=== PATIENT | female | born 2005 | race Caucasian/White ===

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

== ENCOUNTER 2025-05-21 12:25 | Emergency (ER) | payer SELFPAY ==
[2025-05-21 12:27] VITALS: BP 128/89; PULSE 72; TEMP 37; O2SAT 100; BMI 31.1
--- OUTSIDE RECORDS SUMMARY | 2025-05-21 12:39 | XMS_ITS | Clinical Summary ---
Author Organization [facility] Healthcare Address [address] [place] [address] Care Team Providers Care Motorcycle Builder Name Role Phone Chacho Peñaloza MD Primary Care Provider [phone] Allergies Active Allergy Reactions Criticality Noted Date Comments Penicillin G Other 12/15/2023 Medications norgestimate-ethin yl estradiol (Hattie) 0.25-35 MG-MCG tabletIndications: Encounter for contraceptive management, unspecified TAKE 1 TABLET BY MOUTH EVERY DAY FOR 28 DAYS 28 tablet 12 4 Active tretinoin (Retin-A) 0.025 % cream Apply topically at bedtime Active ISOtretinoin (Accutane) 30 MG capsuleIndications :Acne vulgaris Take 2 capsules daily, by mouth, 30 days 60 capsule 4 Active Active Problems No known active problems Family History Medical History Relation Name Comments Asthma Brother Relation Name Status Comments Brother Father Alive Mother Alive Social History Tobacco Use Types Packs/Day Years Used Date Smoking Tobacco: Never Smokeless Tobacco: Never Tobacco Cessation:Counseling Given: Not Answered Alcohol Use Standard Drinks/Week Comments Never 0 (1 standard drink = 0.6 oz pur e alcohol) caffeine: occasional Comments No Sex and Gender Information Value Date Recorded Sex Assigned at Not on file Legal Sex Female 6:50 PM EDT Gender Identity Not on file Sexual Orientation Not on file Last Filed Vital Signs Vital Sign Reading Time Taken Comments Blood Pressure 122/76 12/15/2023 3:50 PM EST Pulse 112 08/14/2024 3:17 PM EDT Temperature 36.4 C (97.5 F) 08/14/2024 3:17 PM EDT Respiratory Rate - - Oxygen Saturation 99% 08/14/2024 3:17 PM EDT Inhaled Oxygen Concentration - - Weight 86.2 kg (190 lb) 08/14/2024 3:17 PM EDT Height 165.1 cm (5' 5 ) 07/06/2022 12:00 PM EDT Body Mass Index - - Plan of Treatment Not on file Insurance [place] [employer] [place] Care Teams Motorcycle Builder Relationship Specialty Start Date End Date Chacho Peñaloza MD PCP - General Family Medicine 11/11/23
--- OUTSIDE RECORDS SUMMARY | 2025-05-21 12:39 | XMS_ITS | Encounter Summary ---
Author Organization [facility] Address [address] [place] [address] Care Team Providers Care Service Rig Operator Name Role Phone Chacho Peñaloza MD Primary Care Provider [phone] Reason for Visit * Reason Comments Med Refill Encounter Details Date Type Department Care Team (Late st Contact Info) Description 09/09/2023 Refill [facility] [address] [facility] [address] [place] [address] Gonzalez Ambrose MD [address] [facility] [address] [place] [address] Encounter for contraceptive management, unspecified Social History Tobacco Use Types Packs/Day Years Used Date Smoking Tobacco: Never Assessed Comments Unknown Sex and Gender Information Value Date Recorded Sex Assigned at Not on file Legal Sex Female 6:50 PM EDT Gender Identity Not on file Sexual Orientation Not on file documented as of this encounter Plan of Treatment Not on file documented as of this encounter Visit Diagnoses Diagnosis Encounter for contraceptive management, unspecified documented in this encounter Care Teams Service Rig Operator Relationship Specialty Start Date End Date Chacho Peñaloza MD PCP - General Family Medicine 11/11/23 documented as of this encounter
--- OUTSIDE RECORDS SUMMARY | 2025-05-21 12:39 | XMS_ITS | Clinical Summary ---
Author Organization [facility] Address [address], [address] [place] [address] Care Team Providers Care Code Clerk Name Role Phone Mario Morton MD Primary Care Provider [phone] Allergies No known active allergies Medications No known medications Social History Tobacco Use Types Packs/Day Years Used Date Smoking Tobacco: Never Assessed Comments Unknown Sex and Gender Information Value Date Recorded Sex Assigned at Not on file Legal Sex Female 5:24 PM EDT Gender Identity Not on file Sexual Orientation Not on file Last Filed Vital Signs Vital Sign Reading Time Taken Comments Blood Pressure 127/67 03/29/2014 10:17 AM EDT Pulse 94 03/29/2014 1:00 PM EDT Temperature 36.4 C (97.6 F) 03/29/2014 1:00 PM EDT Respiratory Rate 18 03/29/2014 1:00 PM EDT Oxygen Saturation 98% 03/29/2014 1:00 PM EDT Inhaled Oxygen Concentration - - Weight 36.3 kg (80 lb) 03/29/2014 10:09 AM EDT Height 121.9 cm (4') 03/29/2014 10:09 AM EDT Body Mass Index 24.41 03/29/2014 10:09 AM EDT Body Mass Index Percentile 98.03% 03/29/2014 10: 09 AM EDT Growth Chart: [facility] (Girls, 2- 20 Years) Plan of Treatment Not on file Care Teams Code Clerk Relationship Specialty Start Date End Date Mario Morton MD PCP - General Pediatrics 03/29/14
--- OUTSIDE RECORDS SUMMARY | 2025-05-21 12:39 | XMS_ITS | Encounter Summary ---
Author Organization [facility] Address [address] [place] [address] Care Team Providers Care Reaming Machine Tender Name Role Phone Chacho Peñaloza MD Primary Care Provider [phone] Encounter Details Date Type Department Care Team (Late st Contact Info) Description 12/23/2023 Abstract [facility] [address] [facility] [address] [place] [address] Gonzalez Ambrose MD [address] [facility] [address] [place] [address] Social History Tobacco Use Types Packs/Day Years Used Date Smoking Tobacco: Never Smokeless Tobacco: Never Alcohol Use Standard Drinks/Week Comments Never 0 [...] documented as of this encounter Visit Diagnoses Not on filedocumented in this encounter Care Teams Reaming Machine Tender Relationship Specialty Start Date End Date Chacho Peñaloza MD PCP - General Family Medicine 11/11/23 documented as of this encounter
--- NOTE | 2025-05-21 12:47 | ED_ITS ---
HPI - Dental/Oral General Chief complaint: Dental/Oral Stated complaint: DENTAL PAIN Time Seen by Provider: 05/21/25 12:37 Source: patient Mode of arrival: walk-in History of Present Illness HPI Narrative: Patient presents to the ED with a complaint of dental pain. She is having dental pain around tooth #3 and 4. She states she has had issues like this in the past she has not seen a dentist recently. She has been up all night with the discomfort. She denies any sore throat or runny nose no swelling underneath her tongue no difficulty with speaking or swallowing. No ear pain. No fever that she knows of she did feel sweats this morning. She did not take her temperature however. She does not have any other contributory symptoms. She does have a filling in the tooth that is bothering her. She has no other complaints at this time MD Complaint: Reports tooth pain Teeth map: 2 1. Onset (ago): day(s) Duration: constant Severity: moderate Relieving factors: NSAIDs Exacerbating factors: chewing and cold Context: history of dental caries Associated symptoms: gum swelling Treatment prior to arrival: oral analgesic Related Data Previous Rx's ?Medication ?Instructions ?Recorded amoxicillin 875 mg tablet 875 mg PO BID #20 tabs 05/21 chlorhexidine gluconate 0.12 % 15 ml mucous membrane B ID 7 days 05/21/25 mouthwash (Peridex) #300 mL naproxen 500 mg tablet 500 mg PO Q12H PRN pain #20 tabs 05/21/25 Allergies Allergy/AdvReac Type Severity Reaction Status Date / Time No Known Drug Allergies Allergy Verified 05/21/25 12:31 PFSH PFSH Social History Little interest or pleasure in doing things: not at all Feeling down, depressed, or hopeless: not at all Exam Constitutional Vital Signs, click to edit/add: Last Vital Signs Temp 98.6 F 05/21/25 12:27 Pulse 72 05/21/25 12:27 Resp 16 05/21/25 12:27 BP 128/89 05/21/25 12:27 Pulse Ox 100 05/21/25 12:27 O2 Del Method Room Air 05/21/25 12:27 Documenting provider has reviewed patient's vital signs: yes Common normals: no apparent distress, average body habitus and oriented x3 HENMT Common normals: normocephalic and head/scalp atraumatic Head and scalp: normal to inspection, normocephalic and atraumatic Face and sinus: normal facial exam, sinuses nontender and face symmetric Nose: external nose normal, nares normal and no nasal discharge General ear: hearing not grossly impaired External ear: external ears normal and mastoids normal; mastoids not abnormal Tympanic membrane: TMs normal bilaterally Mouth: lip normal and tongue normal; moist mucous membranes not abnormal, no muffled voice and no trismus Teeth and gingiva: abnormal tooth and associated gingiva and gingiva abnormal Throat: posterior oropharynx normal Neck & C-Spine Common normals: full ROM, no lymphadenopathy, supple and no meningeal signs Respiratory Common normals: normal respiratory effort, no retractions and clear to auscultation bilaterally Cardio Common normals: regular rate, regular rhythm and no murmurs Rhythm: regular rhythm Neuro Sensorium/orientation: awake and alert Speech: speech normal Gait (neuro): normal gait Psych Common normals: mental status grossly normal Attitude: calm and engaged Activity/motor behavior: appropriate eye contact Speech: normal speech Thought process: normal thought process Course Vital Signs Vital signs: Vital Signs Temperature 98.6 F 05/21/25 12:27 Pulse Rate 72 05/21/25 12:27 Respiratory Rate 16 05/21/25 12:27 Blood Pressure 128/89 05/21/25 12:27 Pulse Oximetry 100 05/21/25 12:27 Oxygen Delivery Method Room Air 05/21/25 12:27 Temperature 98.6 F 05/21/25 12:27 Pulse Rate 72 05/21/25 12:27 Respiratory Rate 16 05/21/25 12:27 Blood Pressure 128/89 05/21/25 12:27 Pulse Oximetry 100 05/21/25 12:27 Oxygen Delivery Method Room Air 05/21/25 12:27 MDM - Dental/Oral MDM Narrative Medical decision making narrative: Patient presents to the ED with a complaint of dental pain. She is having dental pain around tooth #3 and 4. She states she has had issues like this in the past she has not seen a dentist recently. She has been up all night with the discomfort. She denies any sore throat or runny nose no swelling underneath her tongue no difficulty with speaking or swallowing. No ear pain. No fever that she knows of she did feel sweats this morning. She did not take her temperature however. She does not have any other contributory symptoms. She does have a filling in the tooth that is bothering her. She has no other complaints at this time Patient is alert and oriented no acute distress she is resting comfortably in her bed. HEENT exam shows normal TMs pharynx is not erythematous no exudate no swelling underneath the tongue no lymphadenopathy good range of motion of her neck. Tooth #3 and 4 are tender to percussion. She does have a filling in tooth #3. It does not appear to be dislodged. She is speaking in normally. She has redness along the gumline as well. I do not feel any obvious abscess on palpation of the gumline. No abnormality of the palate. Heart and lung exam are unremarkable. I will place the patient on some antibiotics and some pain control. She does have a dentist she has got a follow-up where she also request a work note. All questions were answered and she will be discharged home at this time Differential Diagnosis Differential diagnosis: Likely gingival abscess, dental caries, toothache, dental abscess and fracture of tooth Medical Records Attestation: I reviewed the patient's medical records. Discharge Plan Discharge Chief Complaint: Dental/Oral Clinical Impression: Toothache, Dental caries Patient Disposition: Home, Self-Care Time of Disposition Decision: 12:51 Condition: Good Mode of Transportation: Private Vehicle Prescriptions / Home Meds: New amoxicillin 875 mg tablet 875 mg PO BID Qty: 20 0RF naproxen 500 mg tablet 500 mg PO Q12H PRN (Reason: pain) Qty: 20 0RF chlorhexidine gluconate [Peridex] 0.12 % mouthwash 15 ml mucous membrane BID 7 Days Qty: 300 0RF Rx Instructions: swish x 1 minute and spit Print Language: [place] Citizen Instructions: Toothache (ED) Additional Instructions: Follow up with a Dentist, List provided Referrals: Chacho Peñaloza MD [Primary Care Provider, Family Practice] - 1 week Discharge Date/Time: 05/21/25 13:04
--- OUTSIDE RECORDS SUMMARY | 2025-05-21 12:48 | XMS_ITS | CCD ---
Author Organization [facility] Care Team Providers Care Retort Fireman Name Role Phone GIOVANNI, DR DOAN Attending Unavailable GIOVANNI, DR DOAN Consulting Unavailable GIOVANNI, DR DOAN Primary Care Unavailable GIOVANNI, DR DOAN Admitting Unavailable Unavailable Primary Care Provider Unavailjazmyn Peñaloza MD, Franki Aparicio Primary Care Provider [phone] PROVIDER, UNKNOWN Admitting Unavailable ROBERT THORNTONA Referring Unavailable MATT THORNTON Attending Unavailable PROVIDER, UNKNOWN Attending Unavailable PROVIDER, UNKNOWN Admitting Unavailable JUSTYN GLASS Attending Unavailable FELTER, MAGUI Alexander Attending Unavailable ALEKSANDR AMBROSE Attending Unavailable FELTER, MAGUI Alexander Attending Unavailable FELTER, MAGUI Alexander Attending Unavailable FELTER, MAGUI Alexander Attending Unavailable FELTER, MAGUI Alexander Attending Unavailable FELTER, MAGUI Alexander Attending Unavailable FELTER, MAGUI Alexander Attending Unavailable FELTER, MAGUI Alexander Attending Unavailable ODETTE MATTHEWS Attending Unavailable Allergies Allergy Classification Reported Allergen(s) Allergy Type Date of Onset Reaction(s) Facility (11 sources) Penicillin G Drug Allergy 12-15-2023 Other [facility] Medications Current Medications Medication Drug Class(es) Dates Sig (Normalized) Sig (Original) clindamycin 10 mg/ml topical lotion (4 sources) Lincosamide Antibacterial Start: 03-02-2024 End: 06-22-2024 clindamycin (Cleocin T) 1 % lotion Indications: Acne vulgaris Apply thin later to affected areas on the body during flares, 30 day supply 60 mL 1 03/02/2024 06/22/2024 Discontinued (Ineffective) Start: 09-20-2023 clindamycin (C leocin T) 1 % lotion Indications: Acne vulgaris Apply thin layer to face in morning, 30 day supply 60 mL 11 09/20/2023 Active ethinyl estradiol 0.035 mg / norgestimate 0.25 mg oral tablet (12 sources) Progestin, Estrogen Start: 12-15-2023 norgestimate-ethinyl estradiol (Hattie) 0.25-35 MG-MCG tablet Indications: Encounter for contraceptive management, unspecified TAKE 1 TABLET BY MOUTH EVERY DAY FOR 28 DAYS 28 tablet 12 12/15/2023 Active Start: 09-24-2023 norgestimate-e thinyl estradiol (Hattie) 0.25-35 MG-MCG tablet Indications: Encounter for contraceptive management, unspecified TAKE 1 TABLET BY MOUTH EVERY DAY FOR 28 DAYS 28 tablet 2 09/24/2023 Active ISOtretinoin 30 mg oral capsule (17 sources) Retinoid Start: 06-22-2024 End: 08-02-2024 take 2 capsules by mouth once daily ISOtretinoin (Accutane) 30 MG capsule Indications: Acne vulgaris Take 2 capsules daily, by mouth, 30 days 60 capsule 08/02/2024 Active Start: 05-23-2024 End: 06-22-2024 take 1 capsule by mouth once daily ISOtretinoin (Accutane) 40 MG capsule Indications: Acne vulgaris , Encounter for long-term (current) use of medications Take 1 capsule daily, by mouth, 30 days 30 capsule 05/23/2024 06/22/2024 Discontinued (Dose adjustment) minocycline 100 mg oral capsule (1 source) Tetracycline-class Drug Start: 09-20-2023 take 1 capsule by mouth twice daily minocycline 100 MG capsule Indications: Acne vulgaris Take 1 capsule, by mouth, bid, 30 days 60 capsule 2 09/20/2023 Active tretinoin 0.25 mg/ml topical cream (13 sources) Retinoid Start: 09-20-2023 tretinoin (Retin-A) 0.025 % cream Indications: Acne vulgaris Apply to face, once daily at evening/night time, 30 day supply 20 g 11 09/20/2023 Active tretinoin (Retin -A) 0.025 % cream Apply topically at bedtime Active Completed/Discontinued Medications Medication Drug Class(es) Dates Sig (Normalized) Sig (Original) 12 hr dextromethorphan hydrobromide 30 mg / guaiFENesin 600 mg extended release oral tablet (2 sources) Uncompetitive O-puryzr-F-aspartat e Receptor Antagonist, Sigma-1 Agonist Start: 08-14-2024 End: 08-19-2024 take 1 tablet by mouth once as needed Dextromethorphan -guaiFENesin (Mucinex DM) 30-600 MG tablet sustained-releas e 12 hour Indications: Upper respiratory tract infection, unspecified type Take 1 tablet by mouth every 12 (twelve) hours if needed (as needed) for up to 5 days 28 tablet 08/14/2024 08/19/2024 Problems Active Problems Problem Classification Problem Date Documented Da te Episodic/Chronic Acute bronchitis (1 source) Acute bronchitis, unspecified; Translations: [ACUTE BRONCHITIS UNSPECIFIED] Onset: 02-27-2021 Episodic Disorders of teeth and jaw (3 sources) Tooth eruption disorder; Translations: [Disturbances in tooth eruption] Onset: 11-25-2023 09-30-2023 Episodic Other aftercare (6 sources) Taking high risk medication; Translations: [Other retirement (current) drug therapy] 07-24-2024 Episodic Other skin disorders (6 sources) Acne vulgaris; Translations: [Acne vulgaris] 07-24-2024 Episodic Other upper respiratory infections (2 sources) Upper respiratory infection; Translations: [Acute upper respiratory infection, unspecified] 08-14-2024 Episodic Unclassified (3 sources) CONTACT W/AND (SUSP) EXPOS COVID-19; Translations: [CONTACT W/AND (SUSP) EXPOS COVID-19] Onset: 02-27-2021 Past or Other Problems Problem Classification Problem Date Documented Da te Episodic/Chronic Unclassified (1 source) CONTACT W/AND (SUSP) EXPOS COVID-19; Translations: [CONTACT W/AND (SUSP) EXPOS COVID-19] Onset: 02-19-2021 Results Test Name Value Interpretation Reference Range Facility Laboratory - Microbiology an d Antimicrobial susceptibilityon 08-14-2024 SARS-CoV-2 (COVID-19) RNA JAYDON+probe Ql (Unsp spec) Negative [facility] No Panel Informationon 08-14 FLU A Negative [facility] FLU B Negative [facility] No Panel InformationOrdered By: Justyn Godoy on 08-14-2024 Interpretation and review of laboratory results Normal [facility] S. pyogenes DNA JAYDON+probe No m (Unsp spec)Ordered By: Justyn Godoy on 08-14-2024 RESULT Negative [facility] HCG ( test) Ql (U)o n 08-02-2024 Interpretation and review of laboratory results Normal [facility] Preg Test, Ur Negative [facility] care [facility] HCG ( test) Ql (U)o n 07-24-2024 Interpretation and review of laboratory results Normal [facility] Preg Test, Ur Negative [facility] care [facility] HCG ( test) Ql (U)o n 06-22-2024 Interpretation and review of laboratory results Normal [facility] Preg Test, Ur Negative [facility] Progress Noteson 10-08-2023 Certified Hand Therapist Authentication Interface Message Text [facility] PATIENT VISIT CHIEF COMPLAINT: Arthur Teeth HISTORY OF PRESENT ILLNESS: 17 yo F with sig pmhx of dental anxiety presents to clinic for evaluation of thirds. Patient denies fever, chills, odynophagia, dysphagia, and shortness of breath. Pt endorses waxing and waning pain originating from the teeth listed on the referral that limits ability to chew, function normally, and perform oral hygiene. PAST MEDICAL HISTORY: 17 yrs old White female Medical History No past medical history on file. There is no problem list on file for this patient. MEDICATIONS: No current outpatient medications on file. No current facility-administer ed medications for this visit. ALLERGIES: Patient has no allergy information on record. SURGICAL HX: Surgical History No past surgical history on file. SOCIAL HX: No Significant findings CLINICAL EXAMINATION Extraoral examination: No significant findings No s/s of infection, redness or tenderness to palpation No facial asymmetry or swelling No appreciable LAD Range of motion WNL CN V and VII intact Intraoral examination: No s/s of infection or tenderness to palpation Moist, pink mucosa Oropharynx clear No pathological soft lesions appreciated Oral cancer screen negative Occlusion stable Oral hygiene Fair #1 visible #16 not visible #17, #32 partially visible RADIOGRAPHIC INTERPRETATION: [employer] Film taken on 09/30/2023, and Retained in our clinic files #1 fully erupted #16 partially bony impacted #17, 32 fully bony impacted DIAGNOSIS: Impacted wisdom teeth TREATMENT: 17 yo F with sig pmhx of dental anxiety presents to clinic for evaluation of thirds. Patient is a candidate for IV sedation in clinic. General Anesthesia Exam: PHYSICAL EXAM: Heart: RRR, S1, S2, No Murmur Lung: clear to auscultation Airway: Class I Uvula, faucial pillars, soft palate visible Reviewed procedure and complications associated with extractions ,including treatment options and no treatment. Opportunity given to ask all desired questions. Pertinent and more common complications of extractions discussed with the patient; pain, swelling, bruising, bleeding, infection (that may require further treatment such as hospitalizations), possible permanent numbness of the tongue, gums, teeth, lip, and chin, injury to adjacent structures (tooth, lip, cheek, jaw bone), damage to adjacent teeth, development of permanent TMJ symptoms/dysfunctio n, jaw fracture at time of surgery or afterwards, decision to leave root tips behind, displacement of tooth (or portion of) into adjacent spaces (such as sinus, floor of mouth, throat) and the development of sinus symptoms. Complications are not limited to the above and may include others that are less common. PLAN: EXT #1, 16, 17, 32 under IV sedation in clinic Bishop Ny DDS Dropped by Alexa Hay from [facility] Normal [facility] Patient Instructionson 09-30 Certified Hand Therapist Authentication Interface Message Text Oral Surgery IV sedation / General anesthesia instructions You have chosen conscious sedation or general anesthesia for your treatment. You have the right to be informed about this so that you can decide whether to have it or not after knowing the risks and benefits. These common procedures are considered quite safe. Nevertheless, all procedures have some risks. They include the following and others: 1. Discomfort, swelling or bruising where the drugs are placed into a vein. 2. Vein irritation, called phlebitis, where the drugs are placed into a vein. Sometimes this may grow to a level of discomfort or disability where it may be difficult to move your arm or hand. Sometimes medication or other treatment may be needed. 3. Nerves travel next to the blood vessels where the drugs are placed into a vein. If the needle hits a nerve or if drugs or fluid leaks out of the vessel around a nerve, I may have numbness or pain in the nerve where it runs along the arm. Usually the numbness or pain goes away, but in some cases, it may be permanent 4. Allergic reactions (previously unknown) to any of the medications used. 5. Nausea and vomiting, although not common, are possible unfortunate side effects. Bed rest, and sometimes medications, may be required for relief. 6. Conscious sedation and general anesthesia are serious medical procedures and, whether given in a hospital or office, carry the risk of brain damage, stroke, heart attack or . YOUR OBLIGATIONS: 7. Because anesthetic or sedative medications (including oral premedication) causes drowsiness that lasts for some time, I MUST be accompanied by a responsible adult to drive me to and from surgery, and stay with me for several hours until you are recovered sufficiently to care for myself. Sometimes the effects of the drugs do not wear off for 24 hours. 8. During recovery time (normally 24 hours), I should not drive, operate complicated machinery or devices or make important decisions such as signing documents, etc. 9. I must have a completely empty stomach. It is vital that I have NOTHING TO EAT OR DRINK for eight (8) hours prior to your treatment. TO DO OTHERWISE MAY BE LIFE-THREATENING. 10. Unless instructed otherwise, it is important that I take any regular medications (high blood pressure, antibiotics, etc.) or any medicines given to me by my surgeon using only a small sip of water. 11. You must bring a responsible Adult with you who is willing to stay in the clinic waiting room while you are being treated, and who will take you home. Do not bring small children on day of procedure. Your escort must drive you to and from the hospital. Do not ride the bus. 12. If you are under 18 years of age, your mother, father, or legal guardian must come to the clinic with you. Female patients must have a negative test result from our lab in the system. 13. Do not wear: nail russian, lipstick, heavy makeup, contact lenses, jewelry, wigs. Do wear: loose clothes with short sleeves, long pants, shoes (no high heals). 14. Please call our office to cancel your appointment if you feel sick. Normal [facility] [employer] Progress Noteson 09-30-2023 Certified Hand Therapist Authentication Interface Message Text Normal The [email or web address] Certified Hand Therapist Authentication Interface Message Text ---- Attestation signed by Matt Thornton DMD, MD at 10/28/2023 11:00 AM Teaching Physician Note: I saw and evaluated the patient. I personally obtained the reddy and critical portions of the history and physical exam. I reviewed the resident's documentation and discussed the patient with the resident. I agree with the resident's medical decision making as documented in the resident's note. Matt Thornton DMD, MD ---- [facility] PATIENT VISIT CHIEF COMPLAINT: Arthur Teeth HISTORY OF PRESENT ILLNESS: 17 yo F with sig pmhx of dental anxiety presents to clinic for evaluation of thirds. Patient denies fever, chills, odynophagia, dysphagia, and shortness of breath. Pt endorses waxing and waning pain originating from the teeth listed on the referral that limits ability to chew, function normally, and perform oral hygiene. PAST MEDICAL HISTORY: 17 yrs old White female No past medical history on file. There is no problem list on file for this patient. MEDICATIONS: No current outpatient medications on file. No current facility-administer ed medications for this visit. ALLERGIES: Patient has no allergy information on record. SURGICAL HX: No past surgical history on file. SOCIAL HX: No Significant findings CLINICAL EXAMINATION Extraoral examination: No significant findings No s/s of infection, redness or tenderness to palpation No facial asymmetry or swelling No appreciable LAD Range of motion WNL CN V and VII intact Intraoral examination: No s/s of infection or tenderness to palpation Moist, pink mucosa Oropharynx clear No pathological soft lesions appreciated Oral cancer screen negative Occlusion stable Oral hygiene Fair #1 visible #16 not visible #17, #32 partially visible RADIOGRAPHIC INTERPRETATION: [employer] Film taken on 09/30/2023, and Retained in our clinic files #1 fully erupted #16 partially bony impacted #17, 32 fully bony impacted DIAGNOSIS: Impacted wisdom teeth TREATMENT: 17 yo F with sig pmhx of dental anxiety presents to clinic for evaluation of thirds. Patient is a candidate for IV sedation in clinic. General Anesthesia Exam: PHYSICAL EXAM: Heart: RRR, S1, S2, No Murmur Lung: clear to auscultation Airway: Class I Uvula, faucial pillars, soft palate visible Reviewed procedure and complications associated with extractions ,including treatment options and no treatment. Opportunity given to ask all desired questions. Pertinent and more common complications of extractions discussed with the patient; pain, swelling, bruising, bleeding, infection (that may require further treatment such as hospitalizations), possible permanent numbness of the tongue, gums, teeth, lip, and chin, injury to adjacent structures (tooth, lip, cheek, jaw bone), damage to adjacent teeth, development of permanent TMJ symptoms/dysfunctio n, jaw fracture at time of surgery or afterwards, decision to leave root tips behind, displacement of tooth (or portion of) into adjacent spaces (such as sinus, floor of mouth, throat) and the development of sinus symptoms. Complications are not limited to the above and may include others that are less common. PLAN: EXT #1, 16, 17, 32 under IV sedation in clinic Bishop Ny DDS [facility] Cov[facility] PCR (CVDTBH)on Sample Type Test performed using RT-PCR from a nasopharyngeal collected specimen. Normal The [facility] Comment on above: Performed By: #### C VDTB #### [facility] [address] [place] [address] Yancy Badillo SARS-CoV-2 (COVID-19) RNA JAYDON+probe Ql (Unsp spec) Not detected Normal NOT DETECTED [facility] Comment on above: Result Comment: This test is not yet approved or cleared by the [place] FDA. When there are no FDA-approved or cleared tests available, and other criteria are met, FDA can make tests available under an emergency access mechanism called an Emergency Use Authorization (EUA). The EUA for this test is supported by the Receptionist Nurse of Health and Human Service's (HHS's) declaration that circumstances exist to justify the emergency use of in vitro diagnostics for the detection and/or diagnosis of the virus that causes COVID-19. This EUA will remain in effect (meaning this test can be used) for the duration of the COVID-19 declaration justifying emergency of IVDs, unless it is terminated or revoked by FDA (after which the test may no longer be used). When diagnostic testing is negative, the possibility of a false negative should be considered in the context of a patient's recent exposures and the presence of clinical signs and symptoms consistent with SARS-CoV-2. Performed By: #### [facility] #### [facility] [address], [place] [address] Yancy Badillo Vital Signs Date Time Vital Sign Value Performing Clinician Faci lity 08-14-2024 15:17-0400 Body temperature 97.5 [degF] Colto Work Phone: [facility] 08-14-2024 15:17-0400 Body weight 86.18 kg Colto Work Phone: [facility] 08-14-2024 15:17-0400 Heart rate 112 /min Colto Work Phone: [facility] 08-14-2024 15:17-0400 SaO2% (BldA) [Mass fraction] 99 % Colto Work Phone: [facility] 09-30-2023 08:18-0500 Body height 165.1 cm Matt Thornton DMD, MD Work Phone: [facility] 09-30-2023 08:18-0500 Body mass index (BMI) [Percentile] Per age and sex 92.33 % Matt Thornton DMD, MD Work Phone: [facility] 09-30-2023 08:18-0500 Body mass index (BMI) [Ratio] 28.29 kg/m2 Matt Thornton DMD, MD Work Phone: [facility] 09-30-2023 08:18-0500 Body weight 77.11 kg Matt Thornton DMD, MD Work Phone: [facility] Encounters Encounter Date Encounter Type Care Provider Facility Start: 08-14-2024 End: 08-14-2024 Office outpatient visit 25 minutes Summer Fon Work Phone: [facility] Comment on above: Upper respiratory tr act infection, unspecified type (Primary Dx) Start: 08-14-2024 End: 08-14-2024 ambulatory SUMMER M WORKMAN Not Available Start: 08-02-2024 End: 08-02-2024 Bamboo flowsheet Magui A Felter [employer]ANE HEL[employer]IRITUAL MINISTER Work Phone: [facility] Start: 08-02-2024 End: 08-02-2024 Bamboo flowsheet Magui A Felter [employer] HEL[employer]IRITUAL [employer]ISTER Work Phone: [facility] Start: 08-02-2024 End: 08-02-2024 ambulatory MAGUI A FELTER Not Available Start: 08-02-2024 End: 08-02-2024 Office outpatient visit 5 minutes Magui A Felter [employer] HEL[employer]SPIRITUAL [employer]ISTER Work Phone: [facility] Comment on above: Acne vulgaris (Prima ry Dx); High risk medication use Start: 07-24-2024 End: 07-24-2024 Bamboo flowsheet Magui A Felter [employer] HEL[employer]SPIRITUAL MINISTER Work Phone: [facility] Start: 07-24-2024 End: 07-24-2024 Bamboo flowsheet Magui A Felter [employer] HEL[employer]SPIRITUAL [employer]ISTER [facility] Start: 07-24-2024 End: 07-24-2024 ambulatory MAGUI A FELTER Not Available Start: 07-24-2024 End: 07-24-2024 Office outpatient visit 25 minutes Magui A Felter [employer]IRIT[employer]ISTER Work Phone: [facility] Comment on above: Acne vulgaris (Prima ry Dx); High risk medication use Start: 06-22-2024 End: 06-22-2024 Bamboo flowsheet Magui A Felter [employer] HEL[employer]SPIRITUAL MINISTER Work Phone: [facility] Start: 06-22-2024 End: 06-22-2024 Bamboo flowsheet Magui A Felter [employer] HEL[employer]SPIRITUAL [employer]ISTER Work Phone: [facility] Start: 06-22-2024 End: 06-22-2024 Office outpatient visit 15 minutes Magui A Felter [employer] HEL[employer]SPIRITUAL MINISTER Work Phone: [facility] Comment on above: Acne vulgaris (Prima ry Dx); High risk medication use Start: 06-22-2024 End: 06-22-2024 ambulatory MAGUI A FELTER Not Available Start: 05-23-2024 End: 05-23-2024 ambulatory MAGUI A FELTER Not Available Start: 03-02-2024 End: 03-02-2024 ambulatory MAGUI A FELTER Not Available Start: 01-31-2024 End: 01-31-2024 ambulatory MAGUI A FELTER Not Available Start: 12-15-2023 End: 12-15-2023 ambulatory ALEKSANDR Guerra MARIA TERESA Not Available Start: 11-25-2023 ambulatory [facility] Start: 11-22-2023 Bamboo flowsheet Magui A Fel ter CRANE HELPER[employer]SPIRITUAL MINISTER Work Phone: [facility] Start: 11-22-2023 Bamboo flowsheet Magui A Fel ter CRANE HELPER[employer]SPIRITUAL MINISTER Work Phone: [facility] Start: 11-22-2023 End: 11-22-2023 ambulatory MAGUI A FELTER Not Available Start: 11-11-2023 End: 11-11-2023 ambulatory JUSTYN Dayron QUAN Not Available Start: 09-30-2023 ambulatory UNKNOWN PROVIDER [facility] Start: 09-30-2023 End: 09-30-2023 Patient encounter procedure Matt Thornton DMD, MD Work Phone: [facility] Comment on above: Abnormal tooth erupt ion (Primary Dx) Start: 09-20-2023 End: 09-20-2023 ambulatory MAGUI A FELTER Not Available Start: 02-19-2021 End: 02-20-[address] FRANKI PEÑALOZA Facility:[facility] Procedures Date Procedure Procedure Detail Performing Clinician Start: 08-14-2024 Iadna streptococcus group a amplified probe tq Summer Markus GONZALEZ Work Phone: Start: 08-14-2024 STATUS COVID-19/FLU Sum kaity M Roseanne GONZALEZ Work Phone: Start: 08-02-2024 Urine test visual color cmprsn meths Magui A Felter [employer]ISTER Work Phone: Start: 07-24-2024 Urine test visual color cmprsn meths Magui A Felter [employer]SPIRITUAL [employer]ISTER Work Phone: Start: 06-22-2024 Urine test visual color cmprsn meths Magui A Felter [employer] HEL[employer]SPIRITUAL [employer]ISTER Work Phone: Start: 09-30-2023 panoramic radiograph ic image Bishop Ny DDS Work Phone: Plan of Treatment Date Care Activity Detail Author Start: 12-21-2024 End: 12-21-2024 Patient encounter procedure 12/21/2024 10:30 AM EST Office Visit [facility] [address] [place] [phone] Aleksandr Ambrose MD [address] [place], [place] [id number] [facility] Start: 09-04-2024 End: 09-04-2024 Patient encounter procedure 09/04/2024 10:05 AM EST [facility] Visit [facility] [address] [place] [phone] Magui Campbell, CRANE HEL[employer]IRITUAL [employer]ISTER [address] [place] [address] [facility] Start: 08-24-2024 End: 08-24-2024 Patient encounter procedure 08/24/2024 10:05 AM EST Office Visit [facility] [address] [place] [phone] FelterMagui A, CRANE HEL[employer]IT[employer]ISTER [address] [place] [address] [facility] Start: 07-24-2024 End: 07-24-2024 Patient encounter procedure 07/24/2024 10:35 AM EDT Office Visit [facility] [address] [place] [phone] Magui Campbell, CRANE HEL[employer]SPIRITUAL MINISTER [address] [place] [address] [facility] Start: 06-22-2024 End: 06-22-2025 Alanine aminotransferase [Enzymatic activity/volume] in Serum or Plasma ALT Lab Routine Acne vulgaris Expected: 06/22/2024 (Approximate), Expires: 06/22/2025 [facility] Work Phone: Comment on above: Expected: 06/22/2024 (Approximate), Expires: 06/22/2025 Start: 06-22-2024 End: 06-22-2025 Triglyceride [Mass/volume] in Serum or Plasma Triglycerides Lab Routine Acne vulgaris Expected: 06/22/2024 (Approximate), Expires: 06/22/2025 [facility] Comment on above: Expected: 06/22/2024 (Approximate), Expires: 06/22/2025 Start: 06-22-2024 End: 06-22-2024 Patient encounter procedure 06/22/2024 10:40 AM EDT Office Visit [facility] [address] [place] [phone] Magui Campbell, CRANE HELPER-SPIRITUAL MINISTER [address] [place] [address] Arrived [facility] Comment on above: Arrived Start: 12-15-2023 End: 12-15-2023 Patient encounter procedure 12/15/2023 3:30 PM EST Office Visit [facility] [address] [place] [id number] Aleksandr Ambrose MD [address] [place] [address] [facility] Start: 11-25-2023 End: 11-25-2023 Patient encounter procedure 11/25/2023 8:00 AM EST Office Visit [facility] Oral Surgery [address] [place] [address] Matt Thornton DMD, MD [address] [place] [address] [facility] Oral Surgery Start: 06-18-2023 Influenza vaccination Influenza Vacc ine (#1) [facility] Start: 2021 Meningococcal B (Bexsero,OMV) Vaccine (Optional,16-23 years) Meningococcal B (Bexsero,OMV) Vaccine (Optional,16-23 years) [facility] Start: 2021 Meningococcal Conjug ate (MCV4,ACWY) Vaccine (1 - 2-dose series) Meningococcal Conjugate (MCV4,ACWY) Vaccine (1 - 2-dose series) [facility] Start: 2020 HIV screening HIV Test [facility] Start: 2020 Screening for Chlamy nikkie trachomatis STI Screening (Age 15-17) [facility] Start: 2020 Vision Test (15-17 yrs,once) Vision Test (15-17 yrs,once) [facility] Start: 2016 Adolescent Depressio n Screening Adolescent Depression Screening [facility] Start: 2016 Vaccination for elier n papillomavirus HPV Vaccine (1 - 2-dose series) [facility] Start: 2015 Hearing Test (10-18 yrs,once) Hearing Test (10-18 yrs,once) [facility] Start: 2015 Lipid panel Lipid Screening [facility] Start: 2012 Tetanus,Diptheria,Pe rtussi s Vaccine (1 - Tdap) Tetanus,Diptheria,Pert ussis Vaccine (1 - Tdap) [facility] Start: 2008 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, 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,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) [facility] Start: 2006 Hepatitis A (HAV) Va ccine (1 of 2 - 2-dose series) Hepatitis A (HAV) Vaccine (1 of 2 - 2-dose series) [facility] Start: 2006 [id number] a vaccination Measles,Mumps,Rubella (MMR) Vaccine (1 of 2 - Standard series) [facility] Start: 2006 Varicella vaccination Varicell a Vaccine (1 of 2 - 2-dose childhood series) [facility] Start: 04-29-2006 COVID-19 Vaccine (#1) COVID-19 Vacci ne (#1) [facility] Start: 2005 Polio (IPV) Vaccine (1 of 3 - 4-dose series) Polio (IPV) Vaccine (1 of 3 - 4-dose series) [facility] Start: 2005 Hepatitis B vaccination Hepati tis B (HBV) Vaccine (1 of 3 - 3-dose series) [facility] Payers Date Payer Category Payer Medicaid [id number] 2022 Medicaid [id number] 2005 Unknown [id number] 2.16.84 [id number] 2005 Unknown [id number] 2.16.84 [id number] 2005 Unknown [id number] 2.16.84 0.1.316858.3.579.2.9 2005 Unknown [id number] 2.16.84 0.1.693424.3.579.2.9 2005 Unknown [id number] 2.16.84 0.1.285345.3.579.2.9 2005 Unknown [id number] 2.16.84 0.1.184503.3.579.2.9 2005 Unknown [id number] 2.16.84 0.1.960712.3.579.2.9 2005 Unknown [id number] 2.16.84 0.1.022935.3.579.2.9 2005 Unknown [id number] 2.16.84 0.1.689806.3.579.2.9 2005 Unknown [id number] 2.16.84 0.1.692730.3.579.2.1259 1984 Unknown [id number] 2.16.84 0.1.602778.3.579.2.593 1984 Unknown [id number] 2.16. [id number] 1984 Unknown [id number] 2.16. [id number] 1984 Unknown [id number] 2.16.840 .[id number] 1959 Unknown [id number] Social History Date Type Detail Facility Start: 09-20-2023 End: 09-30-2023 Tobacco smoking status TNIS Never smoked tobacco [facility] Start: 09-20-2023 End: 09-30-2023 Tobacco use and exposure Smokeless tobacco non-user [facility] Start: 2005 Sex Assigned At [facility] Start: 09-20-2023 End: 06-22-2024 Gender identity Not on file [facility] Start: 09-20-2023 End: 06-22-2024 Alcohol intake Lifetime non-drinker (finding) [facility] Start: 09-20-2023 End: 06-22-2024 History of Social function [facility] Start: 09-20-2023 Alcohol Comment caffeine: occasional [facility] Clinical Notes 09-30-2023 to 08-14-2024 CARLOS Ortiz - 08/14/2024 3:05 PM EDTSAMEER Tyson - 08/02/2024 8:35 AM EDTMadinaaliSAMEER Jerez - 07/24/2024 10:35 AM EDTSAMEER Tyson - 06/22/2024 10:40 AM EDT Note Date & Type Note Facility 08-14-2024 History of Presen t illness Narrative HPI: Historian of HPI: patient Igor Drummond is a 18 y.o. female who presents today to the Urgent Care with the following complaints and denials which have been present for 3 day(s). Pt reports sore throat, cough with clear mucus production, myalgias, sinus pressure. Denies sob, wheezing, sob, wheezing, chest pain. C/O Denies Symptom Comments [] [x] Runny Nose [] [x] Difficulty Swallowing [x] [] Sore Throat [x] [] Cough productive [] [x] Ear Pain [] [x] Fever [] [x] Chills [] [x] Nasal Congestion [x] [] Myalgia [x] [] Sinus Pain [] [x] Sinus Pressure Additional Comments: Allergies Allergen Reactions Penicillin G Other Current Outpatient Medications Medication Instructions Dextromethorphan-guaiFENesin (Mucinex DM) 30-600 MG tablet sustained-release 12 hour 1 tablet, Oral, Every 12 hours PRN ISOtretinoin (Accutane) 30 MG capsule Take 2 capsules daily, by mouth, 30 days norgestimate-ethinyl estradiol (Hattie) 0.25-35 MG-MCG tablet TAKE 1 TABLET BY MOUTH EVERY DAY FOR 28 DAYS tretinoin (Retin-A) 0.025 % cream Nightly Visit Vitals Pulse (!) 112 Temp 97.5 F Wt 190 lb SpO2 99% OB Status Having periods Smoking Status Never ROS: A complete system ROS was performed and negative aside from the pertinent positives noted in the HPI and PE. IH Testing: Physical Exam General Examination: alert, oriented, normal affect, well-appearing, in no acute distress, well developed, well nourished. Head: normocephalic, atraumatic Eyes: sclera non-icteric Ears: auditory canal clear, tympanic membrane intact, clear Nose: Slight congestion noted Oral Cavity: no lesions, mucosa moist Throat: clear, symmetrical rise of soft palate and uvula, no erythema or exudate Lymph Nodes: no cervical adenopathy Heart: regular rate and rhythm, S1, S2 normal Lungs: clear to auscultation bilaterally. No wheezes, rales, rhonchi. Extremities: no edema, no cyanosis Psych: alert, oriented, cognitive function intact, cooperative with exam. Assessment/Plan 1. Upper respiratory tract infection, unspecified type (Primary) Discussed diagnosis and management, likely viral etiology and symptomatic treatment including OTC Tylenol, mucinex dm, using humidifier, rest, and increased hydration. Patient advised to return for immediate evaluation if symptoms worse, change, or do not improve. Follow-up with PCP in 5-7 days or sooner if needed. All questions/concerns addressed. Patient voiced understanding and agreement with the plan. - STREP DNA PROBE - STATUS COVID-19/FLU - Dextromethorphan-guaiFENesin (Mucinex DM) 30-600 MG tablet sustained-release 12 hour; Take 1 tablet by mouth every 12 (twelve) hours if needed (as needed) for up to 5 days Dispense: 28 tablet; Refill: 0 documented in this encounter [facility] 08-02-2024 History of Presen t illness Narrative Isotretinoin Follow-up Starting date: 05/23/2024 Starting dose: 60mg Target dose (150xkg): 12,160 Months of therapy completed: 1 Current dose: 40 mg Dose changed at last visit: [] Yes [x] No Cumulative dose: 3,000 mg Status since last visit: I don't notice a difference, some redness has went down. Status since starting therapy: improved Forms of control: Primary: Oral Contraception Secondary: Condom iPledge #: [id number] Patient's weight (kg): 190 lbs Labs: 05/26/2024 baseline- 06/22 ALT WNL, Trig-138, 07/21 ALT WNL, Trigs 189 Here for test/missed window ROS:Ophthalmologic: Blurred Vision Denies Dry eye Denies ENT: Dry lips Admits Nosebleeds Denies Gastrointestinal: Abdominal pain Denies Diarrhea Denies Rectal Bleeding Denies Musculoskeletal: Painful joints Denies Skin: Dry skin Denies Neurologic: Headaches Admits Psychiatric: Mood swings Denies Suicidal Ideation Denies All pertinent medical history, medications, and allergies were reviewed. General Exam: alert , oriented to person, place, and time , normal affect, well appearing Unaccompanied A focused exam completed based on patient reported problems, see below: 1. Acne vulgaris Head - Anterior (Face) Scattered comedones and inflammatory pustules, inadequately controlled. Not at treatment goal. 1. Nodulocystic Acne: severe, necessitating therapy with isotretinoin on current therapy. -Reviewed isotretinoin in detail, including IPledge program. Risks/benefits of medication reviewed with patient -Reviewed side effects of the medication including (but not limited to) xerosis, dry eyes and mouth, elevated liver enzymes, elevated triglyceride levels, alopecia, joint and muscle pain, changes in mood, headaches, etc. -Will need to continue with therapy until goal cumulative dose of 150mg/kg (12,160 mg) is obtained -Patient weight: 190 lbs -Recommend increasing to 60 mg per day -The patient was advised not to share medication with other individuals -The patient was advised not to donate blood products while on the medication -The patient knows to inform our office should they start or stop any new medications -[employer] ID: [id number] 2. Medication monitoring encounter for isotretinoin -Reviewed need for periodic monitoring of blood work (ALT, TG). -Slightly elevated last draw and baseline Triglycerides. Recommend following up with PCP -Reviewed that isotretinoin is a teratogen and that while on therapy there is a need to obtain monthly negative tests. test performed on 05/23/2024. In addition the patient needs to be on 2 forms of control, which are documented to be: 1. Oral control pills 2. Male latex condoms Patient instructed to contact our office if headaches return/worsen with increased dose. Qualified on Ipledge. Follow up 1 month. Related Procedures POCT , urine manually resulted Related Medications ISOtretinoin (Accutane) 30 MG capsule Take 2 capsules daily, by mouth, 30 days 2. High risk medication use Next Visit: 1 month, follow up documented in this encounter [facility] 07-24-2024 History of Presen t illness Narrative Images from the original note were not included. Isotretinoin Follow-up Starting date: 05/23/2024 Starting dose: 60mg Target dose (150xkg): 12,160 Months of therapy completed: 1 Current dose: 40 mg Dose changed at last visit: [] Yes [x] No Cumulative dose: 3,000 mg Status since last visit: I don't notice a difference, some redness has went down. Status since starting therapy: improved Forms of control: Primary: Oral Contraception Secondary: Condom iPledge #: [id number] Patient's weight (kg): 190 lbs Labs: 05/26/2024 baseline- 06/22 ALT WNL, Trig-138, 07/21 ALT WNL, Trigs 189 ROS:Ophthalmologic: Blurred Vision Denies Dry eye Denies ENT: Dry lips Admits Nosebleeds Denies Gastrointestinal: Abdominal pain Denies Diarrhea Denies Rectal Bleeding Denies Musculoskeletal: Painful joints Denies Skin: Dry skin Denies Neurologic: Headaches Admits Psychiatric: Mood swings Denies Suicidal Ideation Denies All pertinent medical history, medications, and allergies were reviewed. General Exam: alert , oriented to person, place, and time , normal affect, well appearing Unaccompanied A focused exam completed based on patient reported problems, see below: 1. Acne vulgaris Head - Anterior (Face) Scattered comedones and inflammatory pustules, inadequately controlled. Not at treatment goal. 1. Nodulocystic Acne: severe, necessitating therapy with isotretinoin on current therapy. -Reviewed isotretinoin in detail, including IPledge program. Risks/benefits of medication reviewed with patient -Reviewed side effects of the medication including (but not limited to) xerosis, dry eyes and mouth, elevated liver enzymes, elevated triglyceride levels, alopecia, joint and muscle pain, changes in mood, headaches, etc. -Will need to continue with therapy until goal cumulative dose of 150mg/kg (12,160 mg) is obtained -Patient weight: 190 lbs -Recommend increasing to 60 mg per day -The patient was advised not to share medication with other individuals -The patient was advised not to donate blood products while on the medication -The patient knows to inform our office should they start or stop any new medications -[employer] ID: [id number] 2. Medication monitoring encounter for isotretinoin -Reviewed need for periodic monitoring of blood work (ALT, TG). -Slightly elevated last draw and baseline Triglycerides. Recommend following up with PCP -Reviewed that isotretinoin is a teratogen and that while on therapy there is a need to obtain monthly negative tests. test performed on 05/23/2024. In addition the patient needs to be on 2 forms of control, which are documented to be: 1. Oral control pills 2. Male latex condoms Patient instructed to contact our office if headaches return/worsen with increased dose. Qualified on Ipledge. Follow up 1 month. Related Procedures POCT , urine manually resulted Related Medications ISOtretinoin (Accutane) 30 MG capsule Take 2 capsules daily, by mouth, 30 days 2. High risk medication use Next Visit: 1 month, follow up documented in this encounter [facility] 06-22-2024 History of Presen t illness Narrative Images from the original note were not included. Isotretinoin Follow-up Starting date: 05/23/2024 Starting dose: 40 mg Target dose (150xkg): 12,160 Months of therapy completed: 1 Current dose: 40 mg Dose changed at last visit: [] Yes [x] No Cumulative dose: 1,200 Status since last visit: little improvement Status since starting therapy: improved Forms of control: Primary: Oral Contraception Secondary: Condom iPledge #: [id number] Patient's weight (kg): 190 lbs Labs: 05/26/2024 baseline- ALT WNL, Trig-138 plan to discuss at today's appointment. ROS:Ophthalmologic: Blurred Vision Denies Dry eye Denies ENT: Dry lips Admits Nosebleeds Denies Gastrointestinal: Abdominal pain Denies Diarrhea Denies Rectal Bleeding Denies Musculoskeletal: Painful joints Denies Skin: Dry skin Admits Neurologic: Headaches Admits- Headaches after initially starting therapy, has since resolved. Psychiatric: Mood swings Denies Suicidal Ideation Denies All pertinent medical history, medications, and allergies were reviewed. General Exam: alert , oriented to person, place, and time , normal affect, well appearing Unaccompanied A focused exam completed based on patient reported problems, see below: 1. Acne vulgaris Head - Anterior (Face) Scattered comedones and inflammatory pustules, inadequately controlled. Not at treatment goal. 1. Nodulocystic Acne: severe, necessitating therapy with isotretinoin on current therapy. -Reviewed isotretinoin in detail, including IPledge program. Risks/benefits of medication reviewed with patient -Reviewed side effects of the medication including (but not limited to) xerosis, dry eyes and mouth, elevated liver enzymes, elevated triglyceride levels, alopecia, joint and muscle pain, changes in mood, headaches, etc. -Will need to continue with therapy until goal cumulative dose of 150mg/kg (12,160 mg) is obtained -Patient weight: 190 lbs -Recommend increasing to 60 mg per day -The patient was advised not to share medication with other individuals -The patient was advised not to donate blood products while on the medication -The patient knows to inform our office should they start or stop any new medications -[employer] ID: [id number] 2. Medication monitoring encounter for isotretinoin -Reviewed need for periodic monitoring of blood work (ALT, TG). -Today plan to obtain following labs: ALT Triglycerides - slightly elevated baseline Tryg -Reviewed that isotretinoin is a teratogen and that while on therapy there is a need to obtain monthly negative tests. test performed on 05/23/2024. In addition the patient needs to be on 2 forms of control, which are documented to be: 1. Oral control pills 2. Male latex condoms Patient instructed to contact our office if headaches return/worsen with increased dose. RTC 1 month ISOtretinoin (Accutane) 30 MG capsule - Head - Anterior (Face) Take 2 capsules daily, by mouth, 30 days POCT , urine manually resulted - Head - Anterior (Face) Related Procedures ALT Triglycerides 2. High risk medication use Next Visit: 1 month documented in this encounter [facility] 09-30-2023 Instructions Bishop Ny DDS - 09/30/2023 8:53 AM EST Oral Surgery IV sedation / General anesthesia instructions You have chosen conscious sedation or general anesthesia for your treatment. You have the right to be informed about this so that you can decide whether to have it or not after knowing the risks and benefits. These common procedures are considered quite safe. Nevertheless, all procedures have some risks. They include the following and others: 1. Discomfort, swelling or bruising where the drugs are placed into a vein. 2. Vein irritation, called phlebitis, where the drugs are placed into a vein. Sometimes this may grow to a level of discomfort or disability where it may be difficult to move your arm or hand. Sometimes medication or other treatment may be needed. 3. Nerves travel next to the blood vessels where the drugs are placed into a vein. If the needle hits a nerve or if drugs or fluid leaks out of the vessel around a nerve, I may have numbness or pain in the nerve where it runs along the arm. Usually the numbness or pain goes away, but in some cases, it may be permanent 4. Allergic reactions (previously unknown) to any of the medications used. 5. Nausea and vomiting, although not common, are possible unfortunate side effects. Bed rest, and sometimes medications, may be required for relief. 6. Conscious sedation and general anesthesia are serious medical procedures and, whether given in a hospital or office, carry the risk of brain damage, stroke, heart attack or . YOUR OBLIGATIONS: 7. Because anesthetic or sedative medications (including oral premedication) causes drowsiness that lasts for some time, I MUST be accompanied by a responsible adult to drive me to and from surgery, and stay with me for several hours until you are recovered sufficiently to care for myself. Sometimes the effects of the drugs do not wear off for 24 hours. 8. During recovery time (normally 24 hours), I should not drive, operate complicated machinery or devices or make important decisions such as signing documents, etc. 9. I must have a completely empty stomach. It is vital that I have NOTHING TO EAT OR DRINK for eight (8) hours prior to your treatment. TO DO OTHERWISE MAY BE LIFE-THREATENING. 10. Unless instructed otherwise, it is important that I take any regular medications (high blood pressure, antibiotics, etc.) or any medicines given to me by my surgeon using only a small sip of water. 11. You must bring a responsible Adult with you who is willing to stay in the clinic waiting room while you are being treated, and who will take you home. Do not bring small children on day of procedure. Your escort must drive you to and from the hospital. Do not ride the bus. 12. If you are under 18 years of age, your mother, father, or legal guardian must come to the clinic with you. Female patients must have a negative test result from our lab in the system. 13. Do not wear: nail russian, lipstick, heavy makeup, contact lenses, jewelry, wigs. Do wear: loose clothes with short sleeves, long pants, shoes (no high heals). 14. Please call our office to cancel your appointment if you feel sick. documented in this encounter [facility] 09-30-2023 History of Presen t illness Narrative Images from the original note were not included. [facility] PATIENT VISIT CHIEF COMPLAINT: Arthur Teeth HISTORY OF PRESENT ILLNESS: 17 yo F with sig pmhx of dental anxiety presents to clinic for evaluation of thirds. Patient denies fever, chills, odynophagia, dysphagia, and shortness of breath. Pt endorses waxing and waning pain originating from the teeth listed on the referral that limits ability to chew, function normally, and perform oral hygiene. PAST MEDICAL HISTORY: 17 yrs old White female No past medical history on file. There is no problem list on file for this patient. MEDICATIONS: No current outpatient medications on file. No current facility-administered medications for this visit. ALLERGIES: Patient has no allergy information on record. SURGICAL HX: No past surgical history on file. SOCIAL HX: No Significant findings CLINICAL EXAMINATION Extraoral examination: No significant findings No s/s of infection, redness or tenderness to palpation No facial asymmetry or swelling No appreciable LAD Range of motion WNL CN V and VII intact Intraoral examination: No s/s of infection or tenderness to palpation Moist, pink mucosa Oropharynx clear No pathological soft lesions appreciated Oral cancer screen negative Occlusion stable Oral hygiene Fair #1 visible #16 not visible #17, #32 partially visible RADIOGRAPHIC INTERPRETATION: [employer] Film taken on 09/30/2023, and Retained in our clinic files #1 fully erupted #16 partially bony impacted #17, 32 fully bony impacted DIAGNOSIS: Impacted wisdom teeth TREATMENT: 17 yo F with sig pmhx of dental anxiety presents to clinic for evaluation of thirds. Patient is a candidate for IV sedation in clinic. General Anesthesia Exam: PHYSICAL EXAM: Heart: RRR, S1, S2, No Murmur Lung: clear to auscultation Airway: Class I Uvula, faucial pillars, soft palate visible Reviewed procedure and complications associated with extractions ,including treatment options and no treatment. Opportunity given to ask all desired questions. Pertinent and more common complications of extractions discussed with the patient; pain, swelling, bruising, bleeding, infection (that may require further treatment such as hospitalizations), possible permanent numbness of the tongue, gums, teeth, lip, and chin, injury to adjacent structures (tooth, lip, cheek, jaw bone), damage to adjacent teeth, development of permanent TMJ symptoms/dysfunction, jaw fracture at time of surgery or afterwards, decision to leave root tips behind, displacement of tooth (or portion of) into adjacent spaces (such as sinus, floor of mouth, throat) and the development of sinus symptoms. Complications are not limited to the above and may include others that are less common. PLAN: EXT #1, 16, 17, 32 under IV sedation in clinic Bishop Ny DDS documented in this encounter [facility] Evaluation note Diagnosis Abnormal tooth eruption- Primary Disturbances in tooth eruption [facility] Diagnosis Acne vulgaris- Primary Other acne High risk medication use documented in this encounter [facility]* Diagnosis Acne vulgaris- Primary Other acne High risk medication use documented in this encounter [facility]* Diagnosis Upper respiratory tract infection, unspecified type- Primary documented in this encounter [facility]* Diagnosis Acne vulgaris- Primary Other acne High risk medication use documented in this encounter [facility] Summary Purpose Family History No Family History Records FoundNo Family History Records FoundNo Family History Records Found Advance Directives No Advanced Directives Records FoundNo Advanced Directives Records FoundNo Advanced Directives Records Found Reason for Referral Specialty Diagnoses / Procedures Referred By Luiz espinoza Referred To Contact Oral Surgery Diagnoses Abnormal tooth eruption Matt Thornton DMD, MD [address] [place] [address] Referral ID Status Reason Start Date Expiration Date V isits Requested Visits Authorized [id number] Pending Review 09/30/2023 09/30/2024 1 1 Scheduling Instructions If your in-clinic procedure was not scheduled for you today, please call (option 2) during normal business hours (8 am to 5 pm) on to schedule. Please allow 4 weeks time between the day of your consult to scheduling your procedure to allow the system time to process the order and receive insurance authorization. If your insurance denies all or part of your procedure, you will be contacted with [id number] costs or next steps. All self-pay payments will need to be collected in full prior to having the procedure. Please arrive 30 minutes prior to your procedure. If you are having a local anesthesia procedure: No diet restrictions the day before or day of the procedure. You may take your normal medications as instructed. No covid testing needed. You may drive yourself home afterward. If you are prescribed anxiety reducing medications for the procedure: You also MUST have a p d driver/escort >18yrs old present to take you home after. If your provider has proposed an IV sedation procedure: Please refer to the instructions given to you at your consult appointment. You will receive a call from a nurse roughly 1 week prior to your procedure to go over any/all instructions. Question Answer What is the procedure for? Dental Please specify: Extractions Please specify: Routine Extraction, Partial Bony Impacted, Full Bony Impacted Routine Extraction--please list tooth number(s): 1 Partial Bony Impacted--please list tooth number(s): 16 Full Bony Impacted--please list tooth number(s): 17, 32 Is Sedation Needed? IV Sedation Desired Length (Minutes): 60 Which area is this procedure for? Clinic Specialty Diagnoses / Procedures Referred By Luiz espinoza Referred To Contact Diagnoses Acne vulgaris Magui Campbell, [employer]ISTER [address] [address] Referral ID Status Reason Start Date Expiration Date V isits Requested Visits Authorized [id number] Pending Review 1 1 Additional Source Comments INFORMATION SOURCE (unrecogn ized section and content) DATE CREATED AUTHOR 03/01/2021 [facility] DATE CREATED AUTHOR AUTHOR'S ORGANIZ ATION 12/19/2023 [facility] DATE CREATED AUTHOR AUTHOR'S ORGANIZ ATION 08/15/2024 [facility] EPIC Reason for Visit (unrecogniz ed section and content) Reason Comments New patient, to establish relationship Reason Comments Acne Reason Comments Acne Care Teams (unrecognized sec tion and content) [employer] Relationship Specialty Start Date End Date Franki Peñaloza MD [address] [place] [facility] [id number] PCP - General Family Medicine 11/11/23 [employer] Relationship Specialty Start Date End Date Franki Peñaloza MD [address] [place] [facility] [phone] PCP - General Family Medicine 11/11/23 [employer] Relationship Specialty Start Date End Date Franki Peñaloza MD [address] [place] [facility] [phone] PCP - General Family Medicine 11/11/23 [employer] Relationship Specialty Start Date End Date Franki Peñaloza MD [address] [place] [facility] [phone] PCP - General Family Medicine 11/11/23 [employer] Relationship Specialty Start Date End Date Franki Peñaloza MD [address] [place] [facility] [phone] PCP - General Family Medicine 11/11/23 [employer] Relationship Specialty Start Date End Date Franki Peñaloza MD [address] [place] [facility] [phone] PCP - General Family Medicine 11/11/23 [employer] Relationship Specialty Start Date End Date Franki Peñaloza MD [address] [place] [facility] [id number] PCP - General Family Medicine 11/11/23 [employer] Relationship Specialty Start Date End Date Franki Peñaloza MD [address] [place] [facility] [phone] PCP - General Family Medicine 11/11/23 FOR RECORDS PERTAINING TO PATIENTS WHO ARE OR HAVE BEEN ENROLLED IN A CHEMICAL DEPENDENCY/SUBSTANCEABUSE PROGRAM, SOME INFORMATION MAY BE OMITTED. This clinical summary was aggregated from multiple sources. Caution should be exercised in using it in the provision of clinical care. This summary normalizes information from multiple sources, and as a consequence, information in this document may materially change the coding, format and clinical context of patient data. In addition, data may be omitted in some cases. CLINICAL DECISIONS SHOULD BE BASED ON THE PRIMARY CLINICAL RECORDS. [employer] [facility]. provides no warranty or guarantee of the accuracy or completeness of information in this document.
== END 2025-05-21 13:04 | disposition home or self-care (01) ==
PROVIDERS: Emergency Provider Emergency Medicine; PCP Family Medicine
DX: K08.89 Other specified disorders of teeth and supporting structures (principal); K02.9 Dental caries, unspecified
CPT/HCPCS: 99283